=== PATIENT | male | born 1985 | race Caucasian/White ===

== ENCOUNTER 2017-01-12 18:49 | Emergency (ER) | payer MEDICAID, OTHER ==
[~2017-01-12] VITALS: Ht 165.1 cm; Wt 67.0 kg
[2017-01-12 19:17] VITALS: Ht 165.1 cm; Wt 67.0 kg
[2017-01-12] MEDS ORDERED: FAMO-96 PO (22:16)
[2017-01-12] MEDS ORDERED: BEN50 PO (22:16)
[2017-01-12] MEDS ORDERED: PRED50TA PO (22:16)
--- NOTE | 2017-01-12 22:21 | ERD ---
ER Documentation Chief Complaint Date/Time DATE: 01/12/17 TIME: 22:18 Chief Complaint c/o generalized body rash x 3 days. No SB. HPI 31-year-old male presents here in emergency department for complaints of rash and itching all over the body that started 3 days ago. Patient does not remember eating something or different. Patient does not have any lip swelling , tongue swelling or stridor. Patient does not have any shortness of breath or wheezing. Patient denies any pets at home. Patient did not take any medications to help with symptoms. ROS All systems reviewed and are negative except as per history of present illness. Medications Home Meds Active Scripts Prednisone* (Prednisone*) 50 Mg Tablet, 50 MG PO DAILY, #5 TAB Prov:KATHE FONG [employer] 01/12/17 Famotidine* (Pepcid*) 20 Mg Tablet, 20 MG PO BID, #20 TAB Prov:KATHE FONG NP 01/12/17 Diphenhydramine Hcl* (Benadryl*) 50 Mg Cap, 50 MG PO Q6H Y for ITCHING/RASH, # 30 CAP Prov:KATHE FONG NP 01/12/17 Allergies Allergies: Coded Allergies: No Known Allergy (Unverified , 01/12/17) PMhx/Soc Medical and Surgical Hx: pt denies Medical Hx, pt denies Surgical Hx History of Surgery: No Anesthesia Reaction: No Hx Neurological Disorder: No Hx Respiratory Disorders: No Hx Cardiac Disorders: No Hx Psychiatric Problems: No Hx Miscellaneous Medical Probl: No Hx Alcohol Use: No Hx Substance Use: No Hx Tobacco Use: No Smoking Status: Never smoker FmHx Family History: No coronary disease, No diabetes, No other Physical Exam Vitals Vital Signs Date Time Temp Pulse Resp B/P Pulse Ox O2 Delivery O2 Flow Rate FiO2 01/12/17 19:17 98.7 77 18 132/69 98 Physical Exam GENERAL: The patient is well developed and appropriate for usual state of health, in no apparent distress. CHEST: Clear to auscultation bilaterally. There are no rales, wheezes or rhonchi. HEART: Regular rate and rhythm. No murmurs, clicks, rubs or gallops. No S3 or S4. ABDOMEN: Soft, nontender and nondistended. Good bowel sounds. No rebound or guarding. No gross peritonitis. No gross organomegaly or masses. No Otoole sign or McBurney point tenderness. BACK: No midline or flank tenderness. EXTREMITIES: Equal pulses bilaterally. There is no peripheral clubbing, cyanosis or edema. No focal swelling or erythema. Full range of motion. Grossly neurovascularly intact. NEURO: Alert and oriented. Cranial nerves 2-12 intact. Motor strength in all 4 extremities with 5/5 strength. Sensation grossly intact. Normal speech and gait. SKIN: maculopapular rash noted all over the body consistent with urticaria. There is no apparent ecchymosis or petechia. The skin is warm and dry. HEMATOLOGIC AND LYMPHATIC: There is no evidence of excessive bruising or lymphedema. No gross cervical, axillary, or inguinal lymphadenopathy. Results 24 hrs Current Medications Medications (Trade) Dose Ordered Sig/Leila Route PRN Reason Start Time Stop Time Status Last Admin Dose Admin Diphenhydramine HCl (Benadryl) 50 mg ONCE ONCE IM 01/12/17 22:30 01/12/17 22:31 Methylprednisolone Sodium Succinate (Solu-Medrol) 125 mg ONCE ONCE IM 01/12/17 22:30 01/12/17 22:31 Benadryl and Solu-Medrol was given here in emergency department. Procedures/MDM Medical decision making: Patient symptoms was likely is consistent with urticaria. No symptoms of anaphylactic shock, no angioedema noted. No symptoms of respiratory distress. No symptoms of any contagious rash. Prescription was given for Benadryl, prednisone, Pepcid, is advised to follow- up with primary care doctor in 2-3 days for reevaluation of symptoms. Patient was advised to return to emergency department for any worsening symptoms. Disposition: Home. Stable. Departure Diagnosis: Primary Impression: Urticaria Condition: Stable Patient Instructions: KATHE Nina NP Jan 12, 2017 22:21
[2017-01-12] MEDS ORDERED: METHYLPREDNISOLONE 125 MG INJ IM ONE (22:30)
[2017-01-12] MEDS ORDERED: DIPHENHYDRAMINE 50 MG INJ IM ONE (22:30)
== END 2017-01-12 23:19 | disposition home or self-care (01) ==
LOC: FTE 18:49
DX: L50.9 Urticaria, unspecified (principal)
CPT/HCPCS: J1200; J2930; 96372